=== PATIENT | female | born 1940 | race Caucasian/White ===

== ENCOUNTER 2020-04-23 16:42 | Emergency (ER) | payer MEDICARE, SELFPAY ==
[~2020-04-23] VITALS: Ht 157.5 cm; Wt 72.6 kg
[2020-04-23 17:02] VITALS: BP_SYST 130
[2020-04-23 17:27] LABS: ANION GAP 11 (5-15); BASOPHILS # (AUTO) 0.1 K/uL (0.0-0.2); BASOPHILS % (AUTO) 0.3 % (0.0-2.0); CALCIUM 8.7 mg/dL (8.4-11.0); CHLORIDE 98 mmol/L (98-107); CREATININE 0.77 mg/dL (0.55-1.30); EOSINOPHILS # (AUTO) 0.2 K/uL (0.0-0.4); EOSINOPHILS % (AUTO) 1.1 % (0.0-4.0); GLUCOSE 140 mg/dL (70-99); HEMATOCRIT 36.2 % (36-48); HEMOGLOBIN 12.2 g/dL (12.0-16.0); LYMPHOCYTES # (AUTO) 0.7 K/uL (1.0-5.5); LYMPHOCYTES % (AUTO) 4.6 % (20.5-51.5); MEAN CORPUSCULAR HEMOGLOBIN 30 pg (27-31); MEAN CORPUSCULAR HGB CONC 34 % (32-36); MEAN CORPUSCULAR VOLUME 89 fL (79.0-98.0); MONOCYTES # (AUTO) 0.8 K/uL (0.0-1.0); NEUTROPHILS # (AUTO) 14.4 K/uL (1.8-7.7); PLATELET COUNT (AUTO) 466 K/uL (130-430); RED BLOOD CELL COUNT(AUTO) 4.07 MIL/uL (4.2-6.2); RED CELL DISTRIBUTION WIDTH 13.9 % (9.0-15.0); SODIUM SERUM 132 mmol/L (136-145); UREA NITROGEN, BLOOD 19 mg/dL (8-21); WHITE BLOOD COUNT (AUTO) 16.2 K/uL (4.8-10.8)
[2020-04-23] MEDS ORDERED: AZITHROMYCIN 500 MG in NS 250 ML IV ONE (17:30)
[2020-04-23] MEDS ORDERED: cefTRIAXone 1 GM in D5W 50 ML IV ONE (17:30)
[2020-04-23] MEDS ORDERED: NS 1000 ML IV.SOLN IV ONE (17:30)
[2020-04-23 17:36] LABS: ALANINE AMINOTRANSFERASE 18 U/L (12-78); ALBUMIN 2.8 g/dL (3.4-4.8); ASPARTATE AMINOTRANSFERASE 19 U/L (10-37); BILIRUBIN,DIRECT 0.1 mg/dL (0.0-0.3); TOTAL BILIRUBIN 0.6 mg/dL (0.0-1.0)
[2020-04-23] MEDS ORDERED: AZITHROMYCIN 500 MG/VIAL (ZITHROMAX) IV ONE (18:30)
[2020-04-23] MEDS ORDERED: cefTRIAXone 1 GM VIAL ONE (18:30)
[2020-04-23 20:55] VITALS: BP_SYST 144
== END 2020-04-23 20:55 | disposition short-term general hospital (02) ==
LOC: SED 16:42
DX: J96.01 Acute respiratory failure with hypoxia (principal); I10 Essential (primary) hypertension; E78.00 Pure hypercholesterolemia, unspecified; Z20.828 Contact with and (suspected) exposure to other viral communicable diseases
CPT/HCPCS: 36415; 71045; 80048; 80076; 83605; 83880; 84484; 85025; 85379; 87040; 87426; 93005; 96365; 96368; 99285; J0456; J0696; J7040